=== PATIENT | female | born 1970 | race Caucasian/White ===

== ENCOUNTER 2022-08-26 08:30 | Emergency (ER) | payer BC, SELFPAY ==
[2022-08-26 08:51] LABS: UTC Strep Screen (Rapid) Negative (Negative)
[2022-08-26 08:53] VITALS: BP 142/92; PULSE 96; RESP 18; TEMP 36.8; O2SAT 98; BMI 27.3
--- NOTE | 2022-08-26 08:53 | EXP.UTC ---
Discharge Plan Disposition Patient Disposition: Home, Self-Care Condition: Good Prescriptions Prescriptions: New amoxicillin [amoxicillin] 500 mg tablet 500 mg PO TID 10 Days Qty: 30 0RF benzonatate [benzonatate] 100 mg capsule 100 mg PO TIDP PRN (Reason: Cough) Qty: 30 0RF methylprednisolone 4 mg Tablets,Dose Pack 4 mg PO DIRECTED Qty: 21 0RF No Action loratadine 10 MG capsule 10 mg PO DAILY Referrals Follow up/Referrals: Provider,Referral, MD [Primary Care Provider] - See instructions Activity Restrictions/Add. Instructions Additional Instructions/Restrictions: Drink plenty of fluids. Take tylenol or ibuprofen for pain or fever. Take the medications as directed. Follow up with your regular doctor. GO TO THE ER FOR ANY WORSENING SYMPTOMS Clinical Impressions Clinical Impression: Pharyngitis, Otitis media Instructions Patient Instructions: Strep Throat, DI for Strep Throat Discharge ED Provider: Charlie Gomez [facility] [place] HPI General Stated complaint: sore throat, congestion, runny nose Time Seen by Provider: 08/26/22 08:53 History of Present Illness Provider Complaint: She states that for the past 2 days she has had worsening sore throat and right ear pain. Related Data Home Medications Medication Instructions Recorded Confirmed loratadine 10 mg capsule 10 mg PO DAILY ALLERGIES 11/04/19 11/06/19 Previous Rx's Medication Instructions Recorded amoxicillin 500 mg tablet 500 mg PO TID 10 days #30 tabs 08/26/22 benzonatate 100 mg capsule 100 mg PO TIDP PRN Cough #30 caps 08/26/22 methylprednisolone 4 mg tablets in 4 mg PO DIRECTED #21 tabs 08/26/22 a dose pack Allergies Allergy/AdvReac Type Severity Reaction Status Date / Time Sulfa (Sulfonamide Allergy Unknown Rash Verified 08/26/22 08:58 Antibiotics) [facility] Social History Smoking Status: Never smoker alcohol intake: current substance use type: denies use current occupational status: employed Travel in the last 8 weeks: None household members: spouse housing: house caffeine: Yes ROS Obtained: Yes All systems reviewed & no additional complaints except as documented Constitutional Constitutional: Reports chills and Reports fever(s) Eyes Eyes: Denies eye discharge ENT Ears, Nose, Mouth, and Throat: Reports as per HPI Cardiovascular Cardiovascular: Denies chest pain Respiratory Respiratory: Denies chest congestion and Reports cough Gastrointestinal Gastrointestingal: Reports nausea; Denies abdominal pain, constipation, cramping, diarrhea or vomiting Musculoskeletal Musculoskeletal: Denies arthralgias Integumentary/Breasts Skin/Breast: Denies rash Neurologic Neurologic: Denies paresthesias Physical Exam General General appearance: alert and in no apparent distress Head Head exam: atraumatic, normocephalic and normal inspection Eye Eye exam: Present normal appearance, PERRL and EOMI ENT ENT exam: Present mucous membranes moist and normal external ear exam Expanded ENT Exam TM/Canal exam: Bilateral TM: erythema and bulging Nose exam: Absent sinus tenderness Mouth exam: Present normal external inspection; Absent drooling Teeth exam: Present normal inspection Throat exam: Present tonsillar erythema, tonsillomegaly and tonsillar exudate Neck Neck exam: Present normal inspection, full ROM and trachea midline; Absent tenderness, meningismus or lymphadenopathy Chest Chest inspection: Present normal inspection and symmetric chest wall rise; Absent tenderness Respiratory Respiratory exam: Present normal lung sounds bilaterally; Absent respiratory distress, wheezes or stridor Cardiovascular Cardiovascular exam: Present regular rate and normal rhythm; Absent systolic murmur or diastolic murmur Abdominal Exam Abdominal exam: Present soft and normal bowel sounds; Absent distention, tenderness, guarding, rebound or rigidity Ext
[2022-08-26 09:13] VITALS: BP 142/92; PULSE 96; RESP 18; TEMP 36.8
== END 2022-08-26 09:17 | disposition home or self-care (01) ==
PROVIDERS: Emergency Provider Nurse Practitioner Family
DX: H66.90 Otitis media, unspecified, unspecified ear (principal); J02.9 Acute pharyngitis, unspecified
CPT/HCPCS: 87880; 99212; G0463

== ENCOUNTER → 2023-09-16 08:29 | Outpatient (CLI) | payer BC, SELFPAY ==
[2023-09-16 19:17] LABS: Basophils % 0.4 % (0.1-2.0); Eosinophils # 0.1 K/mm3 (0.0-0.4); Eosinophils % 2.4 % (0.1-12.0); Hematocrit 40.4 % (37.0-47.0); Lymphocytes # 1.4 K/mm3 (0.7-4.5); Lymphocytes % 34.2 % (10-50); Mean Corpuscular HGB Conc 34.6 g/dL (31.8-35.4); Mean Corpuscular Hemoglobin 32.4 pg (27.0-31.2); Mean Corpuscular Volume 93.6 fl (81-99); Mean Platelet Volume 8.1 fl (7.4-10.4); Monocytes # 0.4 K/mm3 (0.1-1.0); Monocytes % 9.4 % (1.7-9.3); Neutrophils # 2.3 K/mm3 (1.8-7.8); Neutrophils % 53.6 % (37.0-80.0); Platelet Count 227 K/mm3 (142-424); Red Blood Count 4.32 M/mm3 (4.20-5.40); White Blood Count 4.2 K/mm3 (4.8-10.8)
[2023-09-16 19:34] LABS: Alanine Aminotransferase 27 U/L (12-78); Albumin Level 4.6 g/dl (3.5-5.0); Albumin/Globulin Ratio 1.8 (1.1-1.8); Alkaline Phosphatase 80 U/L (38-126); Aspartate Amino Transferase 39 U/L (14-36); Bilirubin,Total 0.4 mg/dl (0.2-1.3); Blood Urea Nitrogen 10 mg/dl (7-17); Calcium 10.2 mg/dl (8.4-10.2); Carbon Dioxide 28 mmol/L (22.0-30.0); Chloride 102 mmol/L (98-107); Chol/HDL Ratio 2.2 (1-3.5); Cholesterol 207 mg/dl (140-200); Estimated Glomerular Filt Rate 65 ml/min (>60); GFR (African American) 79 ML/MIN (>60); Globulin 2.6 g/dL (1.3-3.2); Glucose 89 mg/dl (74-100); HDL Cholesterol 95 mg/dl (40-60); Sodium 139 mmol/L (136-145); Total Protein,Serum 7.2 g/dl (6.3-8.2); Triglycerides 70 mg/dl (30-150); VLDL Cholesterol 14 mg/dL (0-40)
[2023-09-16 19:45] LABS: Direct LDL Cholesterol 91.92 mg/dL (100-129)
[2023-09-16 19:53] LABS: 25-OH Vitamin D, Total 48.7 ng/mL (30-100)
[2023-09-16 20:34] LABS: Hemoglobin A1C 5.5 % (4.0-6.0)
== END ==
PROVIDERS: PCP Internal Medicine; Visit Provider Internal Medicine
DX: R53.83 Other fatigue (principal); Z79.899 Other long term (current) drug therapy
CPT/HCPCS: 80053; 80061; 82306; 83036; 85025

== ENCOUNTER 2025-06-07 10:28 | Day surgery (SDC) | payer BC, SELFPAY ==
[2025-06-04 13:07] VITALS: BMI 35.9
[2025-06-07 10:53] VITALS: BP 141/71; PULSE 80; RESP 18; TEMP 36.3; O2SAT 98
[2025-06-07] MEDS: LACTATED RINGERS 1000ML 1,000 ML 50 ML IV (10:53)
--- NOTE | 2025-06-07 11:03 | EXP.ANES.CKL ---
[facility] Disclaimer: The information contained in this section may have been updated after the patient was seen, as this information can be updated by other users. Medical History (Updated 06/07/25 @ 10:51 by Deep Rodirguez RN) No significant past medical history Surgical History Surgical history of tubal ligation Family History (Updated 06/04/25 @ 13:05 by Yamileth Ponce RN) Father Family history of hypertension Mother Lung cancer Social History (Updated 06/04/25 @ 13:03 by Yamileth Ponce RN) Smoking Status: Never smoker alcohol intake: current alcohol intake frequency: holidays/special occasions only substance use type: denies use current occupational status: employed Travel in the last 8 weeks?: None household members: spouse housing: house caffeine: Yes Have you lived/traveled outside US in past 30 days?: No Contact w/someone who lives/traveled outside US past 30 days?: No Exposure to someone with infectious disease in past 14 days?: No Do you have a fever (greater than 100.4 F or 38 C)?: No Have you tested positive for COVID-19?: No Exposed to someone with COVID-19 in past 14 days?: No Do you have a sore throat?: No Do you have a cough?: No Do you have any weakness?: No Do you have any diarrhea?: No Are you experiencing any unusual bleeding?: No Do you have any muscle aches/pain?: No Do you have any abdominal pain?: No Are you experiencing loss of taste or smell?: No [facility] Anesthesia Checklist Patient Identification Patient Identification: Arm Band Structural Data Admitted From: Home Planned Operative Procedure/s: Colonoscopy Consent for Planned Operative Procedure(s) Verified: Yes Verified Documents: Surgical Consent and History and Physical NPO Status Verified Time NPO: 08:30 Additional verifications Anesthesia Reactions: No Airway Assessment Mallampati Score:: Class II C-Spine Mobility Assessed: Yes TMJ Mobility Assessed: Yes Dentition: Good Dentition Neurological Assessment Level of Consciousness: Awake, Alert and Appropriate Anesthesia Plan Anesthesia Risk discussed: Yes Anesthesia Plan: Verified ASA Class: II Anesthesia Type: MAC
--- NOTE | 2025-06-07 11:49 | EXP.HP ---
History of Present Illness *Admission Date: 06/07/25 *Reason for visit:: Personal history of adenomatous colon polyp *History of present illness: Mrs. Jasmine is a 54-year-old female who is here for follow-up surveillance colonoscopy secondary to a personal history of an adenomatous colon polyp. The examination is deemed medically necessary for surveillance colonoscopy. The patient has been seen, interviewed and examined prior to the procedure by both myself and the anesthesia provider. [facility] Disclaimer: The information contained in this section may have been updated after the patient was seen, as this information can be updated by other users. Medical History (Updated 06/07/25 @ 11:50 by West Ingram II, MD) No significant past medical history Surgical History Surgical history of tubal ligation Family History (Updated 06/04/25 @ 13:05 by Yamileth Ponce RN) Father Family history of hypertension Mother Lung cancer Social History (Updated 06/04/25 @ 13:03 by Yamileth Ponce RN) Smoking Status: Never smoker alcohol intake: current alcohol intake frequency: holidays/special occasions only substance use type: denies use current occupational status: employed Travel in the last 8 weeks?: None household members: spouse housing: house caffeine: Yes Have you lived/traveled outside US in past 30 days?: No Contact w/someone who lives/traveled outside US past 30 days?: No Exposure to someone with infectious disease in past 14 days?: No Do you have a fever (greater than 100.4 F or 38 C)?: No Have you tested positive for COVID-19?: No Exposed to someone with COVID-19 in past 14 days?: No Do you have a sore throat?: No Do you have a cough?: No Do you have any weakness?: No Do you have any diarrhea?: No Are you experiencing any unusual bleeding?: No Do you have any muscle aches/pain?: No Do you have any abdominal pain?: No Are you experiencing loss of taste or smell?: No Other Medical History Have you received the Flu Vaccine for this season: No Have you received the Pneumonia Vaccine: No Review of Systems Review of Systems Review of systems (narrative): Negative *Cardiovascular Comments: Negative *Gastrointestinal Comments: Negative *Genitourinary Comments: Negative *Musculoskeletal Comments: Negative *Neurologic Comments: Negative Meds Home Medications and Allergies Home Medications ?Medication ?Instructions ?Recorded ?Confirmed ?Type No Known Home Medications 06/07/25 06/07/25 History New Prescriptions to Start Prescriptions: Allergies Allergy/AdvReac Type Severity Reaction Status Date / Time Sulfa (Sulfonamide Allergy Unknown Rash Verified 06/04/25 13:05 Antibiotics) Exam Data for Last 24 hours Vital signs and Labs for Last 24 Hours: Temp Pulse Resp BP Pulse Ox O2 Del Method 97.3 F L 80 18 141/71 H 98 Room Air 06/07/25 10:53 06/07/25 10:53 06/07/25 10:53 06/07/25 10:53 06/07/25 10:53 06/07/25 10:53 I & O for Last 24 hours: Intake & Output 06/04/25 06/05/25 06/06/25 06/07/25 23:59 23:59 23:59 23:59 Weight 250 lb *Routine HEENT Exam Head: Present normocephalic Eye: Present EOMI and PERRL ENT: Present mucous membranes moist *Routine Neck Exam Neck: Present supple *Routine Respiratory Exam Respiratory: Present CTA bilaterally *Routine Cardiovascular Exam Cardiovascular: Present RRR *Routine Abdominal Exam Abdominal: Present soft and normoactive bowel sounds; Absent tenderness *Routine Rectal Exam Rectal:: deferred *Routine Genitalia Exam Genitalia:: deferred *Routine Extremities Exam Extremities: Absent cyanosis, clubbing or edema *Routine Skin Exam Skin: Present warm; Absent rash *Routine Neurological Exam Neurological: Present alert and oriented X3 Assessment and Plan *Assessment and plan (1) Personal history of adenomatous and serrated colon polyps: Status: Acute Category: Medical Code(s): Z86.0101 - Personal history of adenomatous and serrated colon polyps Plan A/P: 1. Personal history of adenomatous colon polyp is the preprocedural diagnosis. The patient will be anesthetized/sedated using MAC sedation. The patient has been seen and examined. Cardiac and lung assessment prior to the examination is stable. Proceed with planned surveillance colonoscopy.
--- NOTE | 2025-06-07 11:56 | HMH.PROCNOTE ---
[facility] Procedure Note Date: 06/07/25 Time: 12:13 Procedure Note:: Colonoscopy Procedure Report: Colonoscopy Endoscopist: West Ingram II, MD Referring physician: Fouzia Lehman MD, [address] [facility], [place] [address] Date of Procedure: June 07, 2025 Equipment: Olympus 190 variable stiffness pediatric colonoscope Sedation: MAC sedation Indication: Mrs. Jasmine is a 54-year-old female who is here for follow-up screening/surveillance colonoscopy. She did have a colonoscopy in October 2019 and had a 3 to 4 mm polyp (tubular adenoma) removed. She reports no abdominal pain, weight loss, change in her bowel habits or rectal bleeding. She reports no family history of colon cancer. Procedure: Prior to the procedure, a history and physical exam was performed, and patient's medications and allergies were reviewed. The risks, benefits and alternatives of the sedation and procedure were discussed with the patient. All questions were answered and informed consent was obtained. The patient was brought to the procedure room. Patient identification and proposed procedure were verified by the physician and the nurse. The patient was placed in a left lateral decubitus position and the scope was passed under direct vision. Throughout the procedure, the patient's blood pressure, pulse, and oxygen saturations were monitored continuously. The colonoscopy was accomplished without difficulty. The patient tolerated the procedure well. Findings: On digital rectal examination there was normal rectal tone. There were no external hemorrhoids. The colonoscope was introduced through the anal canal to the rectum and advanced to the cecum. The ileocecal valve and appendiceal orifice were identified. The scope was advanced a short distance into the ileum which appeared grossly normal. The scope was then withdrawn into the colon. The cecum, ascending, transverse, descending, sigmoid and rectum were grossly normal. There were no mucosal abnormalities identified. Upon retroflexion within the rectum there were grade 1-2 internal hemorrhoids. The preparation was excellent throughout with [place] Preparation Score of 9. The cecal time was 12 minutes. Impression: 1. Normal colonoscopy with intubation of the terminal ileum Plan: The patient will not require surveillance colonoscopy again for 10 years by ACS guidelines.
[2025-06-07 12:14] VITALS: BP 105/69; PULSE 75; RESP 18; TEMP 36.2; O2SAT 93
[2025-06-07 12:24] VITALS: BP 113/65; PULSE 89; RESP 16; O2SAT 95
[2025-06-07 12:44] VITALS: BP 122/70; PULSE 80; RESP 18; TEMP 36.2; O2SAT 97
[2025-06-07 13:48] VITALS: BP 120/69; PULSE 91; RESP 20; O2SAT 97
== END 2025-06-07 13:56 | disposition home or self-care (01) ==
PROVIDERS: Visit Provider Internal Medicine Gastroenterology
PROC: 0DJD8ZZ Inspection of Lower Intestinal Tract, Via Natural or Artificial Opening Endoscopic (ICD-10-PCS; CPT 45378; principal; 2025-06-07 12:00)
DX: Z12.11 Encounter for screening for malignant neoplasm of colon (principal); Z88.2 Allergy status to sulfonamides; Z86.0101 Personal history of adenomatous and serrated colon polyps
CPT/HCPCS: 45378; J2003; J2704; J7120

== ENCOUNTER 2025-11-05 11:00 | Outpatient (CLI) | payer BC, SELFPAY ==
--- OUTSIDE RECORDS SUMMARY | 2025-11-16 11:47 | XMS_ITS | Data Portability ---
Author Organization [facility] Address [address] [place] [address] Assessment No assessment recorded. Plan of Treatment Reminders Order Date Submit Date Provider Last Modified By Organization Details Last Modified Time Details Appointments None record ed. Lab None record ed. Referral None record ed. Procedures None record ed. Surgeries None record ed. Imaging None record ed. Medication Orders None record ed. Patient TargetsNo targets recorded. Patient Instructions Encounter Date Encounter Id Patient Instructions Last Modified By Organization Details Last Modified Time 08/11/2024 [id number] I reviewed her history exam imaging detail. Discussed conservative options at this point as I feel it is impingement subsequent bursitis. Scapula cyst makes big difference for her with forward elevation and strength. She and I discussed Medrol steroid injections MRI. Will set her up with [facility] in [place] and a steroid Dosepak. She will call back in several weeks if she is not doing better we can then consider the subacromial space injection and if no relief then go with MRI right shoulder but I do think her cuff is in good condition Follow-up as needed phester Not available 08/11/2024 17:19:29 Reason for Referral None Reported. Results Created Date Observation Date Name Description Value Unit Range Abnormal Flag Note LastModifiedBy Organization Detail LastModifiedTime 08/11/20 24 08/11/2024 XR, shoul nuvia, 2 or more view [place] [facility] [address] [place] [address] Jona brantley Name: INDIRA brantley : [id number] brantley 99 Orderi ng Provid er: MAXINE MERINO EXAM DATE: 2023 EXAM: XR RT SHOULD ER COMPLE TE RADIOG RAPHIC VIEWS: 4 COMPAR JUAN: None. HISTOR Y: Right should er pain. FINDIN GS: The bones of the should er are normal in alignm ent. There is no eviden ce of fractu re. There is mild degene rative change s at the acromi oclavi cular joint and along the glenoh umeral joint. The acromi oclavi cular and coraco clavic ular spacin g is normal . The visual ized right ribs and right lung appear s normal . IMPRES AUDREY: 1. There are mild degene rative change s in the right should er. Interp reted By: Santos rizo MD Electr on ly Signed By: Santos rizo MD on 3:49 PM [facility] [place] [address] , [place], [address], 08/11/2024 18:32:04 Result Notes Documentation Provider Name and Address Organization Details Recorded Time Xr, Shoulder, 2 Or More View : [facility] [place] [address] [address] Patient Name: INDIRA JASMINE Patient : 1970 Patient Ordering Provider: MAXINE MERINO EXAM DATE: 08/11/2024 EXAM: XR RT SHOULDER COMPLETE RADIOGRAPHIC VIEWS: 4 COMPARISON: None. HISTORY: Right shoulder pain. FINDINGS: The bones of the shoulder are normal in alignment. There is no evidence of fracture. There is mild degenerative changes at the acromioclavicular joint and along the glenohumeral joint. The acromioclavicular and coracoclavicular spacing is normal. The visualized right ribs and right lung appears normal. IMPRESSION: 1. There are mild degenerative changes in the right shoulder. Interpreted By: Butch Phipps MD NE MERINO MD [address] [place] [address], [id number], [facility] 08/11/2024 18:32:04 Medical Equipment None Reported. Medications Name Sig Start Date Stop Date Status Note LastModified by Organization Details LastModified Time Medrol (Jeffery) 4 mg tablets in a dose pack Take 1 dose pk by oral route as directed . 024 active Not Available Not Available Not Avai lable Vitals Date Recorded Body height Body mass index (BMI) Body weight Provider Name and Address Organization Details Last Updated DateTime 08/11/2024 175.26 cm 27.3 kg/m2 74225.59 g Jesenia Wright [facility] 08/11/2024 16:14:16 Social History None recorded. Functional Status None recorded. Mental Status None recorded. Family History Nothing Reported. Medical History No medical history recorded. Gynecological HistoryNo gynecological history recorded. Obstetrics History GPAL:G 0 P 0 0 0 0 Past Encounters Encounter ID Performer Location Encounter Start Date Encounter Closed Date Diagnosis/Indication Diagnosis SNOMED-CT Code Diagnosis ICD10 Code Diagnosis IMO Codes Diagnosis Note [id number] MAXINE MERINO MD [facility] [address] [place] [address] 08/11/2024 15:32:24 08/12/2024 04:59:25 Pain of right shoulder joint [id number] M25.511 Health Concerns Section Related Observation LastModified by Organization Detai ls LastModified Time None Recorded Concern Status LastModified by Organization Details LastModified Time None Recorded Advance Directives Directive None Recorded Payers Insurance Date Sequence Insurance Name Policy Number Policy Vance Covered Member ID Vance Member ID Guarantor Name 08/11/2024 1 [place] [id number] Indira Mitali [id number] Indira O'Neals Notes Date Note Type Note Provider Name and Address Organization Details Recorded Time 08/11/2024 text/html HAND DOMINANCE: RightWHAT: Right Shoulder.WHEN:Apri l 2023HOW: no known injurySYMPTOMS:Jose n is intermittent sharp pain in nature.The patient does not have numbness or tinglingThey do not have popping and clickingThey are able to sleep comfortably with this injury, not on right side.Their pain is made better with resting the limbTheir pain is exacerbated by lifting.Overall, the patient would say that their pain is well-controlled at this timePAIN: /10X-RAY: LCReviewed her right shoulder x-rays in detail with her. Normal-looking shoulder. No pathologic process.MRI: noPT: noINJECTION:no MAXINE MERINO MD [address] [place], [address], [facility] 08/11/2024 17:19:40 OBGyn Episode No OBEpisode recorded.
--- OUTSIDE RECORDS SUMMARY | 2025-11-16 11:48 | XMS_ITS | Clinical Summary ---
[facility] Organization [facility] Address [address] [place] [address] Care Team Providers Care Auto Service Representative Name Role Phone Aislinn Deep Edward ADAMSON Primary Care Provider [phone] Allergies Active Allergy Reactions Criticality Noted Date Comments Sulfa Antibiotics Hives 03/18/2025 Family History Medical History Relation Name Comments Breast cancer Maternal Cousin unknown Breast cancer Sister Ovarian cancer Neg Hx Relation Name Status Comments Maternal Cousin Sister Social History Tobacco Use Types Packs/Day Years Used Date Smoking Tobacco: Never Assessed Comments No Sex and Gender Information Value Date Recorded Sex Assigned at Not on file Legal Sex Female 11:47 AM EDT Gender Identity Not on file Sexual Orientation Not on file Plan of Treatment Health Maintenance Due Date Last Done Comments ANNUAL PHYSICAL 1970 Annual Gynecologic Pelvic an d Breast Exam 1970 HEPATITIS C SCREENING 1970 TDAP/TD VACCINES (1 - Tdap) 1988 COLOGUARD 2014 COLON CANCER SCREENING 5 YEA R SIGMOIDOSCOPY 2014 COLONOSCOPY [address] CANCER SCREENING [address] COLONOGRAPHY 2014 FECAL OCCULT BLOOD TEST 2014 FIT Testing (1 year) 2014 Pneumococcal Vaccine 50+ (1 of 1 - PCV) 2019 ZOSTER VACCINE (1 of 2) 2019 INFLUENZA VACCINE 06/18/2025 MAMMOGRAM 03/18/2027 03/18/2025, 04/07/2024, 03/11/2023, Additional history exists Procedures Procedure Name Priority Date/Time Associated Diagnosis Comments MAMMO SCREENING DIGITAL TOMOSYNTHESIS BILATERAL W CAD Routine 03/18/2025 4:03 PM EDT Visit for screening mammogram from Last 3 Months or Most Recently Relevant to Health Maintenance Results * Mammo Screening Digital Tomosynthesis Bilateral With CAD (03/18/2025 4:03 PM EDT) Anatomical Region Laterality Modality Breast N/A Mammography 03/23/2025 10:5 8 AM EDT Impressions 03/23/2025 10:58 AM EDT Negative bilateral mammogram. RECOMMENDATION: Continue annual screening mammography. BI-RADS CATEGORY 1, NEGATIVE. CAD was utilized. The standard false-negative rate of mammography is between 10% and 25%. Complex patterns or increased breast density will markedly elevate the false-negative rate of mammography. A letter, in lay terminology, with the results of this exam will be mailed to the patient. 03/23/2025 10:[address] Shivani Reilly MD on Narrative 03/23/2025 10:58 AM EDT DIGITAL SCREENING MAMMOGRAM WITH TOMOSYNTHESIS HISTORY: Screening Mammography. Low dose full field digital breast tomosynthesis imaging was performed with 2D and 3D acquisitions consisting of bilateral CC and MLO views. Examination is compared to prior examination dating back to 09/24/2018. Examination is read in conjunction with computer aided detection. FINDINGS: There are scattered areas of fibroglandular density. No suspicious masses, microcalcifications or areas of architectural distortion are present. Fouzia Lehman MD IMG MAMMOGRAPHY ORDERABLES Fi nal Result from Last 3 Months or Most Recently Relevant to Health Maintenance Insurance [employer] Care Teams Auto Service Representative Relationship Specialty Start Date End Date Deep Tao DO [address] [place], [place] [id number] PCP - General Internal Medicine 03/16/24
--- OUTSIDE RECORDS SUMMARY | 2025-11-16 11:48 | XMS_ITS | Clinical Summary ---
Author Organization [facility] Address [address] [place] [id number] Phone [email or web address] Care Team Providers Care Machine Clerical Verifier Name Role Phone Ren Aranda Primary Care Provider [phone] Allergies Active Allergy Reactions Criticality Noted Date Comments Sulfa Antibiotics 08/19/2019 Medications loratadine (CLARITIN) 10 MG tablet Take 10 mg by mouth 1 (one) time each day. Active busPIRone (BUSPAR) 7.5 MG tablet Take 7.5 mg by mouth in the morning and 7.5 mg before bedtime. 09/10/2023 Active Active Problems Problem Noted Date Diagnosed Date Health examination of defined subpopulation 12/19 Overview (04/16/2018): Social History Tobacco Use Types Packs/Day Years Used Date Smoking Tobacco: Never Smokeless Tobacco: Never Tobacco Cessation:Counseling Given: Not Answered Intimate Partner Violence Answer Date R ecorded Insults You Not on file 02/28/2021 Threatens You Not on file 02/28/2021 Screams at You Not on file 02/28/2021 Physically Hurt Not on file 02/28/2021 Intimate Partner Violence Score Not on file 02/28/2021 Stress Answer Date Recorded Stress in your Life Not on file 09/21/2024 Dealing with Stress 3 09/21/2024 Comments Unknown Sex and Gender Information Value Date Recorded Sex Assigned at Not on file Legal Sex Female 8:14 AM CDT Gender Identity Not on file Sexual Orientation Not on file Last Filed Vital Signs Vital Sign Reading Time Taken Comments Blood Pressure 140/88 09/19/2023 12:09 PM EDT Pulse 64 09/19/2023 12:09 PM EDT Temperature 36.3 C (97.3 F) 09/19/2023 12:09 PM EDT Respiratory Rate 14 11/23/2019 6:29 AM EST Oxygen Saturation 98% 09/19/2023 12:09 PM EDT Inhaled Oxygen Concentration - - Weight 86.2 kg (190 lb) 03/17/2018 9:49 PM CDT Height 175.3 cm (5' 9 ) 03/17/2018 9:49 PM CDT Body Mass Index 28.06 03/17/2018 9:49 PM CDT Plan of Treatment Health Maintenance Due Date Last Done Comments CT Colonography 1969 Cervical Cancer Screening Combo 1969 Colonoscopy 1969 Colorectal Cancer Screening Combo 1969 DNA Cologuard 1969 Dental Cleaning/Exam 1969 FIT or FOBT Test 1969 HIV Screening 1969 HPV only / HPV + Pap 1969 Hepatitis C Screening 1969 Pap only testing 1969 Sigmoidoscopy 1969 Annual Preventive Exam 1987 Hep B Infection Screening - Triple Screen 1987 Hepatitis B Immunization (1 of 3 - 19+ 3-dose series) 1988 Tetanus Diphtheria and Pertussis Immunization (1 - Tdap) 1988 Pneumococcal: 50+ Years (1 of 1 - PCV) 2019 Zoster Immunization (1 of 2) 2019 Breast Cancer Screening 03/11/2025 03/11/20, 03/08/2022, 02/02/2021, Additional history exists Covid-19 Immunization ( - season) 2025 Influenza Immunization (#1) 2025 HIB Immunization Aged Out No longer e ligible based on patient's age to complete this topic HPV Immunization Aged Out No longer e ligible based on patient's age to complete this topic Hepatitis A Immunization Aged Out No longer eligible based on patient's age to complete this topic Polio Immunization Aged Out No longer eligible based on patient's age to complete this topic Insurance OPT OUT NO COPAY NB ANTHEM IN COPAY [id number] [place] [address] Care Teams Machine Clerical Verifier Relationship Specialty Start Date End Date Ren Aranda [address] [place] [address] PCP - General Family Medicine 08/19/19
== END 2025-11-05 23:59 | disposition home or self-care (01) ==
LOC: LAB.DROPOF 11-16 11:45
PROVIDERS: Visit Provider Nurse Practitioner
DX: N39.0 Urinary tract infection, site not specified (principal)
CPT/HCPCS: 87086

== ENCOUNTER 2025-11-15 13:00 | Outpatient (CLI) | payer BC, SELFPAY ==
--- OUTSIDE RECORDS SUMMARY | 2025-12-02 13:15 | XMS_ITS | Clinical Summary ---
Author Organization [facility] Address [address] [place] [address] Care Team Providers Care Enamel Shader Name Role Phone Aislinn Deep Edward ADAMSON Primary Care Provider [phone] Allergies Active Allergy Reactions Criticality Noted Date [...] Recently Relevant to Health Maintenance Insurance [facility] BLUE SHIELD PPO Care Teams Enamel Shader Relationship Specialty Start Date End Date Deep Tao DO [address] [place], [place] [id number] PCP - General Internal Medicine 03/16/24
--- OUTSIDE RECORDS SUMMARY | 2025-12-02 13:15 | XMS_ITS | Clinical Summary ---
Author Organization [facility] Address [address] [place] [id number] Phone [email or web address] Care Team Providers Care Hand Etcher Helper Name Role Phone Ren Aranda Primary Care Provider [phone] Allergies Active Allergy Reactions Criticality Noted Date [...] NO COPAY NB ANTHEM IN COPAY 5 [facility] Address: [address] [place] [address] [id number] [place] [address] Care Teams Hand Etcher Helper Relationship Specialty Start Date End Date Ren Aranda [address] [place] [address] PCP - General Family Medicine 08/19/19
== END 2025-11-15 23:59 | disposition home or self-care (01) ==
LOC: LAB.DROPOF 12-02 13:05
PROVIDERS: Visit Provider Nurse Practitioner
DX: N39.0 Urinary tract infection, site not specified (principal)
CPT/HCPCS: 87086